=== PATIENT | female | born 1990 | race Caucasian/White ===

== ENCOUNTER 2020-05-11 11:11 | Emergency (ER) | payer OTHER ==
[~2020-05-11] VITALS: Ht 175.3 cm; Wt 81.6 kg
--- NOTE | 2020-05-11 11:25 | NUR ---
bib self c/o r lower back pain with spasms 03/24. Was lifting son started having pain in the back. vs checked. stable. awaiting md [facility].
[2020-05-11] MEDS ORDERED: KETOROLAC TROMETHAMINE INJ 30 MG/ML VIAL ONE (11:50)
[2020-05-11] MEDS ORDERED: DIAZEPAM 5 MG TABLET ONE (11:50)
--- NOTE | 2020-05-11 11:53 | NUR ---
pt states that shes not and that her period ended today, states that shes not . toradol administered
[2020-05-11] MEDS ORDERED: DIAZEPAM 5 MG TABLET PO ONE (12:00)
[2020-05-11] MEDS ORDERED: KETOROLAC TROMETHAMINE INJ 30 MG/ML VIAL IM ONE (12:00)
--- NOTE | 2020-05-11 12:00 | NUR ---
Patient discharged to home in stable condition. Written and verbal after care instructions given. Patient verbalizes understanding of instruction.
[2020-05-11 12:01] VITALS: BP 110/82
== END 2020-05-11 12:03 | disposition home or self-care (01) ==
LOC: ER 11:16
DX: M54.5 Low back pain (principal)
CPT/HCPCS: 99283; J1885